=== PATIENT | male | born 1980 | race Caucasian/White ===

== ENCOUNTER 2018-02-12 14:48 | Emergency (ER) | payer MEDICAID ==
[~2018-02-12] VITALS: Ht 180.3 cm; Wt 65.8 kg
--- OUTSIDE RECORDS SUMMARY | ~2018-02-12 | XMS | Encounter Summary ---
Demographics + + + | Address | [address] | | | [place] [address] | + + + | Home Phone | | + + + | Preferred Language | Unknown | + + + | Marital Status | Single | + + + | Church Affiliation | Unknown | + + + | Race | Unknown | + + + | Ethnic Group | Unknown | + + + Author + + + | Author | [facility] | | | and [place] | + + + | Organization | [facility] | | | and [place] | + + + | Address | Unknown | + + + | Phone | Unavailable | + + + Support + + + + + | Name | Relationship | Address | Phone | + + + + + | Lidya Dodson | ECON | [address] | | | | | [place] [address] | | + + + + + Care Team Providers + +------+ + | Care Surfacing Technician Name | Role | Phone | + +------+ + | Mihaela Cordero | PCP | | + +------+ + Reason for Visit +---------+ + | Reason | Comments | +---------+ + | Results | | +---------+ + Encounter Details +--------+ + + + + | Date | Type | Department | Care Team | Description | +--------+ + + + + | 11/20/ | Telephone | [place] [facility] | Jerri Corderosay | Results | | 2018 | | [facility] | G, MUCK [address]ER BLASTING [address] | | | | | MEDICAL CLIN[facility] [address] | [place], [place] | | | | | [address] [place], | [address] | | | | | [place] [address] | [phone] | | | | | [phone] | | | +--------+ + + + + Social History + +-------+ +--------+ + | Tobacco Use | Types | Packs/Day | Years | Date | | | | | Used | | + +-------+ +--------+ + | Heavy Tobacco Smoker | | 0.5 | 20 | Started: 1993 | + +-------+ +--------+ + + +---+---+---+ | Smokeless Tobacco: | | | | | Former User | | | | + +---+---+---+ + + +---------+ + | Alcohol Use | Drinks/We | oz/Week | Comments | | | ek | | | + + +---------+ + | Yes | 2 Cans | 1.2 | | | | of beer | | | + + +---------+ + + + + | Sex Assigned at | Date Recorded | | | | + + + | Not on file | | + + + as of this encounter Plan of Treatment Not on fileas of this encounter Visit Diagnoses Not on filein this encounter"
--- OUTSIDE RECORDS SUMMARY | ~2018-02-12 | XMS | Encounter Summary ---
Demographics + + + | Address | [address] | | | [place] [address] | + + + | Home Phone | | + + + | Preferred Language | Unknown | + + + | Marital Status | Single | + + + | Sabianist Affiliation | Unknown | + + + | Race | Unknown | + + + | Ethnic Group | Unknown | + + + Author + + + | Author | [facility] | | | and [place] | + + + | Organization | [facility] | | | and [place] | + + + | Address | Unknown | + + + | Phone | Unavailable | + + + Support + + + + + | Name | Relationship | Address | Phone | + + + + + | Lidya Dodson | ECON | [address] | | | | | [place] [address] | | + + + + + Care Team Providers + +------+ + | Care Warp Tension Tester Name | Role | Phone | + +------+ + | Mihaela Cordero | PCP | | + +------+ + Reason for Referral Diagnostic/Screening (Routine) +--------+--------+ + + + + | Status | Reason | Specialty | Diagnoses / | Referred By | Referred To | | | | | Procedures | Contact | Contact | +--------+--------+ + + + + | Closed | | Radiology | Diagnoses | Anali Corderor | | | | | Thyroid | Mihaela G, | Nuclear | | | | | nodule | [address] | [address] | | | | | Procedures | [address] | [address] | | | | | NM THYROID | [place], [place] | [place] | | | | | [place] | [address] | [address] | | | | | SCAN | Phone: | Phone: | | | | | | [phone] | [phone] | | | | | | Fax: | Fax: | | | | | | [phone] | [phone] | +--------+--------+ + + + + Encounter Details +--------+ + + + + | Date | Type | Department | Care Team | Description | +--------+ + + + + | 11/17/ | Orders Only | [place] [facility] | Mihaela Cordero | Thyroid nodule | | 2018 | | [facility] | G, [address] | (Primary Dx) | | | | MEDICAL CLINIC [address] | [place], [place] | | | | | [address] [place], | [address] | | | | | [place] [address] | [phone] | | | | | [phone] | | | +--------+ + + + [...] + + + as of this encounter Progress Notes Mihaela Cordero ARNP - 11/17/2017 1651 PDTCalled patient and let him know that his thy roid ultrasound showed some solid lesion that appeared to be non-cancerous however there is another thyroid scan test that I would like to order for further evaluation. He was agreeabl e with this plan. in this encounter Plan of Treatment Not on fileas of this encounter Results NM THYROID UPTAKE AND SCAN (12/05/2017 0959) + + + | Impressions | Performed At | + + + | IMPRESSION: 1. The 24 hour uptake is mildly elevated. The | [facility] | | finding is nonspecific but can be associated with thyroiditis. 2. No | | | hot or cold nodules identified. The recent ultrasound study | | | demonstrated a hypoechoic less than 4 mm nodule at the lower right | | | thyroid. At the left thyroid lobe a hypoechoic 2 mm nodule | | | demonstrated. These findings would be too small to definitively | | | localize with nuclear medicine imaging. Dictated by: London Crowley | | | | | + + + + + + | Narrative | Performed At | + + + | EXAMINATION: NM THYROID UPTAKE AND SCAN HISTORY: solid thyroid | [facility] | | nodules further evaluation COMPARISON STUDY: Ultrasound thyroid | | | 11/17/2017 TECHNIQUE: 211 microcuries of I 123 sodium iodide was | | | administered orally to the patient. Routine for 24 hour uptake | | | images were then performed. FINDINGS: 4 hour uptake is calculated | | | at 14% 24 hour uptake is calculated at 30.5% Normal range for 4 | | | hour and 24 hour uptake is 5-15% and 10-25%. The thyroid gland | | | measures 6.1 cm on the right, and 5.3 cm on the left No hot or cold | | | nodule. | | + + + + + | Procedure Note | + + | Robin, Rad Results In - 12/05/2017 1326 PDT EXAMINATION:NM THYROID UPTAKE AND | | SCANHISTORY:solid thyroid nodules further evaluationCOMPARISON STUDY:Ultrasound thyroid | | 11/17/2017TECHNIQUE:211 microcuries of I 123 sodium iodide was administered orally to | | the patient. Routine for 24 hour uptake images were then performed.FINDINGS:4 hour | | uptake is calculated at 14%24 hour uptake is calculated at 30.5%Normal range for 4 hour | | and 24 hour uptake is 5-15% and 10-25%.The thyroid gland measures 6.1 cm on the right, | | and 5.3 cm on the leftNo hot or cold nodule.IMPRESSION: IMPRESSION:1. The 24 hour uptake | | is mildly elevated. The finding is nonspecific but can be associated with | | thyroiditis.2. No hot or cold nodules identified. The recent ultrasound study | | demonstrated a hypoechoic less than 4 mm nodule at the lower right thyroid. At the left | | thyroid lobe a hypoechoic 2 mm nodule demonstrated. These findings would be too small | | to definitively localize with nuclear medicine imaging.Dictated by: London | | Keo | |4 hour uptake is calculated at 14% | |24 hour uptake is calculated at 30.5% | |Normal range for 4 hour and 24 hour uptake is 5-15% and 10-25%. | |The thyroid gland measures 6.1 cm on the right, and 5.3 cm on the left | |No hot or cold nodule. | | | |IMPRESSION: | |IMPRESSION: | |1. The 24 hour uptake is mildly elevated. The finding is nonspecific but can be associated with thyroiditis. | |2. No hot or cold nodules identified. The recent ultrasound study demonstrated a hypoechoi c less than 4 mm nodule at the lower right thyroid. At the left thyroid lobe a hypoechoic 2 mm nodule demonstrated. These findings would be too small to | |definitively localize with nuclear medicine imaging. | | | |Dictated by: London Crowley | | | | | + + + +---------+ + + | Performing | Address | City/State/Zipcode | Phone Number | | Organization | | | | + +---------+ + + | [facility] | | | | + +---------+ + + in this encounter Visit Diagnoses + + | Diagnosis | + + | Thyroid nodule - Primary | + + | Nontoxic uninodular goiter | + +"
--- OUTSIDE RECORDS SUMMARY | ~2018-02-12 | XMS | Encounter Summary ---
Demographics + + + | Address | [address] | | | [place] [address] | + + + | Home Phone | | + + + | Preferred Language | Unknown | + + + | Marital Status | Single | + + + | Spiritism Affiliation | Unknown | + + + | Race | Unknown | + + + | Ethnic Group | Unknown | + + + Author + + + | Author | [facility] | | | and [place] | + + + | Organization | [facility] | | | and [place] | + + + | Address | Unknown | + + + | Phone | Unavailable | + + + Support + + + + + | Name | Relationship | Address | Phone | + + + + + | Lidya Dodson | ECON | [address] | | | | | [place] [address] | | + + + + + Care Team Providers + +------+ + | Care Environmental Conflict Manager Name | Role | Phone | + [...] | | | | | nodule | [address] | [address] | | | | | Procedures | [address] | [address] | | | | | NM THYROID | [place], [place] | [place] | | | | | [place] | [address] | [address] | | | | | SCAN | Phone: | Phone: | | | | | | [phone] | [phone] | | | | | | Fax: | Fax: | | | | | | [phone] | [phone] | +--------+--------+ + + + + Diagnostic/Screening (Routine) +--------+--------+ + + + + | Status | Reason | Specialty | Diagnoses / | Referred By | Referred To | | | | | Procedures | Contact | Contact | +--------+--------+ + + + + | Closed | | Radiology | Diagnoses | Cordero, | Cc Wgr | | | | | Thyroid | Mihaela Hill, | Nuclear | | | | | nodule | [address] | [address] | | | | | Procedures | [address] | [address] | | | | | NM THYROID | [place] | [place] | | | | | [place] | [address] | [address] | | | | | SCAN | Phone: | Phone: | | | | | | [phone] | [phone] | | | | | | Fax: | Fax: | | | | | | [phone] | [phone] | +--------+--------+ + + + + Reason for Visit Diagnostic/Screening (Routine) +--------+--------+ + + + + | Status | Reason | Specialty | Diagnoses / | Referred By | Referred To | | | | | Procedures | Contact | Contact | +--------+--------+ + + + + | Closed | | Radiology | Diagnoses | Gil | Nadia Wgr | | | | | Thyroid | Mihaela Hill, | Nuclear | | | | | nodule | [address] | [address] | | | | | Procedures | [address] | [address] | | | | | NM THYROID | [place] | [place] | | | | | [place] | [address] | [address] | | | | | SCAN | Phone: | Phone: | | | | | | [phone] | [phone] | | | | | | Fax: | Fax: | | | | | | [phone] | [phone] | +--------+--------+ + + + + Encounter Details +--------+ + + + + | Date | Type | Department | Care Team | Description | +--------+ + + + + | 12/04/ | [facility] | [place] [facility] | Mihaela Cordero | Thyroid nodule | | 2018 | Encounter | [facility] | G, RATE REVIEW[address] | | | | | MEDIC[address] | [place] | | | | | [place] | [address] | | | | | [address] | [phone] | | | | | [phone] | | | +--------+ + + + + Social History + +-------+ +--------+ + | Tobacco Use | Types | Packs/Day | Years | Date | | | | | Used | | + +-------+ +--------+ + | Heavy Tobacco Smoker | | 0.5 | 20 | Started: 1994 | + +-------+ +--------+ + + +---+---+---+ [...] + + + as of this encounter Medications at Time of Discharge + + +---------+---------+ + + | Medication | Sig. | Disp. | Refills | Start | End Date | | | | | | Date | | + + +---------+---------+ + + | triamcinolone | Apply small amount | 60 mL | 0 | // | | | (KENALOG) 0.1% | to affected area(s) | | | 18 | | | lotionIndications: | two to four times | | | | | | Tinea pedis of both | daily as needed: | | | | | | feet | avoid face and groin | | | | | | | areas | | | | | + + +---------+---------+ + + as of this encounter Plan of Treatment Not on fileas of this encounter Procedures + +--------+ + + + | Procedure Name | Priori | Date/Time | Associated Diagnosis | Comments | | | ty | | | | + +--------+ + + + | NM THYROID UPTAKE | Routin | 12/05/2017 | Thyroid nodule | Results for this | | AND SCAN | e | 0959 PDT | | procedure are in the | | | | | | results section. | + +--------+ + + + in this encounter Results NM THYROID UPTAKE AND [...] Diagnosis | + + | Thyroid nodule | + + | Nontoxic uninodular goiter | + +"
--- OUTSIDE RECORDS SUMMARY | ~2018-02-12 | XMS | Encounter Summary ---
Demographics + + + | Address | [address] | | | [place] [address] | + + + | Home Phone | | + + + | Preferred Language | Unknown | + + + | Marital Status | Single | + + + | Roman Catholic Affiliation | Unknown | + + + | Race | Unknown | + + + | Ethnic Group | Unknown | + + + Author + + + | Author | [facility] | | | and [place] | + + + | Organization | [facility] | | | and [place] | + + + | Address | Unknown | + + + | Phone | Unavailable | + + + Support + + + + + | Name | Relationship | Address | Phone | + + + + + | Lidya Dodson | ECON | [address] | | | | | [place] [address] | | + + + + + Care Team Providers + +------+ + | Care Cane Weigher Helper Name | Role | Phone | + +------+ + | Mihaela Cordero PCP | | + +------+ + Encounter Details +--------+ + + + + | Date | Type | Department | Care Team | Description | +--------+ + + + + | 12/04/ | [facility] | Mihaela Cordero | | | 2018 | Encounter | [facility] | [place] [address] | | | | | MEDICINE [address] | [place] | | | | | [address] [place], [place] | [address] | | | | | [address] | [phone] | | | | | [phone] | | | +--------+ + + + [...] amount | 60 mL | 0 | 11/15/19 | | | (KENALOG) 0.1% | to [...] +--------+ + + + in this encounter Visit Diagnoses Not on filein this encounter Administered Medications + +--------+ + +------+------+ | Medication Order | MAR | Action | Dose | Rate | Site | | | Action | Date | | | | + +--------+ + +------+------+ | iodine I-123 (thyroid scan) | Given | | 211 | | | | capsule 211 microcurie 211 | | 8 9:36 | microcur | | | | microcurie, Oral, ONCE PRN, | | PDT | ie | | | | Other, Starting 12/04/17 at | | | | | | | 0936, For 1 dose, Nuclear | | | | | | | Medicine | | | | | | + +--------+ + +------+------+ +---+---+ | | | +---+---+ in this encounter"
--- OUTSIDE RECORDS SUMMARY | ~2018-02-12 | XMS | Encounter Summary ---
Demographics + + + | Address | [address] | | | [place] [address] | + + + | Home Phone | | + + + | Preferred Language | Unknown | + + + | Marital Status | Single | + + + | Mormon Affiliation | Unknown | + + + | Race | Unknown | + + + | Ethnic Group | Unknown | + + + Author + + + | Author | [facility] | | | and [place] | + + + | Organization | [facility] | | | and [place] | + + + | Address | Unknown | + + + | Phone | Unavailable | + + + Support + + + + + | Name | Relationship | Address | Phone | + + + + + | Lidya Dodson | ECON | [address] | | | | | [place] [address] | | + + + + + Care Team Providers + +------+ + | Care Search Specialist Name | Role | Phone | + +------+ + | Mihaela Cordero | PCP | | + +------+ + Reason for Visit +---------+ + | Reason | Comments | +---------+ + | Results | | +---------+ + Encounter Details +--------+ + + + + | Date | Type | Department | Care Team | Description | +--------+ + + + + | 12/06/ | Telephone | [place] [facility] | Carrington Corderoy | Results | | 2018 | | [facility] | G, UNION CONTRACT REPRESENTATIVE [address] | | | | | MEDICAL CLINIC [address] | [place], [place] | | | | | [address] [place], | [address] | | | | | [place] [address] | [phone] | | | | | [phone] | | | +--------+ + + + [...]
--- OUTSIDE RECORDS SUMMARY | ~2018-02-12 | XMS | Clinical Summary ---
Demographics + + + | Address | [address] | | | [place] [address] | + + + | Home Phone | | + + + | Preferred Language | Unknown | + + + | Marital Status | Single | + + + | Baptism Affiliation | Unknown | + + + | Race | Unknown | + + + | Ethnic Group | Unknown | + + + Author + + + | Author | [facility] | | | and [place] | + + + | Organization | [facility] | | | and [place] | + + + | Address | Unknown | + + + | Phone | Unavailable | + + + Support + + + + + | Name | Relationship | Address | Phone | + + + + + | Lidya Dodson | ECON | [address] | | | | | [place] [address] | | + + + + + Care Team Providers + +------+ + | Care Type Caster Name | Role | Phone | + +------+ + | Mihaela Cordero | PP | | + +------+ + Allergies No Known Allergies Current Medications + + +---------+---------+------+------+-------+ | Prescription | Sig. | Disp. | Refills | Star | End | Statu | | | | | | t | Date | s | | | | | | Date | | | + + +---------+---------+------+------+-------+ | triamcinolone | Apply small amount | 60 mL | 0 | 05/2 | | Activ | | (KENALOG) 0.1% | to affected area(s) | | | 9/20 | | e | | lotionIndications: | two to four times | | | 18 | | | | Tinea pedis of both | daily as needed: | | | | | | | feet | avoid face and groin | | | | | | | | areas | | | | | | + + +---------+---------+------+------+-------+ Active Problems + + + | Problem | Noted Date | + + + | Gastroesophageal reflux disease | 01/05/2016 | + + + Encounters +--------+ + + + + | Date | Type | Specialty | Care Team | Description | +--------+ + + + + | 12/06/ | Telephone | | Mihaela Cordero | Results | | 2017 | | | [facility] | | +--------+ + + + + | 12/05/ | Hospital | | Mihaela Cordero | | | 2017 | Encounter | | [facility] | | +--------+ + + + + | 12/05/ | Orders Only | | Mihaela Cordero | Multiple thyroid | | 2017 | | | [facility] | nodules (Primary Dx) | +--------+ + + + + | 12/04/ | Hospital | | Mihaela Cordero | | | 2018 | Encounter | | [facility] | | +--------+ + + + + | 12/04/ | Hospital | | Mihaela Cordero | Thyroid nodule | | 2018 | Encounter | | [facility] | | +--------+ + + + + | 11/20/ | Telephone | | Mihaela Cordero | Results | | 2017 | | | [facility] | | +--------+ + + + + | 11/20/ | Telephone | | Mihaela Cordero | Results | | 2018 | | | [facility] | | +--------+ + + + + | 11/17/ | Hospital | | Mihaela Cordero | Dysphagia, | | 2017 | Encounter | | [facility] | unspecified type | +--------+ + + + + | 11/17/ | Orders Only | | Mihaela Cordero | Thyroid nodule | | 2018 | | | [facility] | (Primary Dx) | +--------+ + + + + | 11/17/ | Telephone | | Mihaela Cordero | 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, 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 | | +--------+ + + + + | 11/14/ | Office | | Mihaela Cordero | Fatigue, unspecified | | 2017 | Visit | | [facility] | type (Primary Dx); | | | | | | 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; | | | | | | Onychomycosis; | | | | | | Dysphagia, | | | | | | unspecified type; | | | | | | Tinea pedis of both | | | | | | feet; At risk for | | | | | | sexually transmitted | | | | | | disease due to | | | | | | unprotected sex | +--------+ + + + + from Last 3 Months Family History + + +------+ + | Medical History | Relation | Name | Comments | + + +------+ + | Breast cancer | Maternal | | | | | Grandmoth | | | | | er | | | + + +------+ + | Thyroid disease | Mother | | | + + +------+ + | Prostate cancer | Paternal | | | | | Grandfath | | | | | er | | | + + +------+ + | Thyroid disease | Sister | | | + + +------+ + + +------+--------+ + | Relation | Name | Status | Comments | + +------+--------+ + | Maternal Grandmother | | | | + +------+--------+ + | Mother | | | | + +------+--------+ + | Paternal Grandfather | | | | + +------+--------+ + | Sister | | | | + +------+--------+ + Social History + +-------+ +--------+ + [...] on file | | + + + Last Filed Vital Signs + + + + | Vital Sign | Reading | Time Taken | + + + + | Blood Pressure | 104/76 | 11/14/2017923 PDT | + + + + | Pulse | 86 | 11/14/2017923 PDT | + + + + | Temperature | 36.7 C (98.1 F) | 10/30/2017 1623 PDT | + + + + | Respiratory Rate | 16 | 11/14/2017923 PDT | + + + + | Oxygen Saturation | 98% | 11/14/2017923 PDT | + + + + | Inhaled Oxygen | - | - | | Concentration | | | + + + + | Weight | 66.2 kg (146 lb) | 11/14/2017923 PDT | + + + + | Height | 175.3 cm (5' 9") | 11/14/2017923 PDT | + + + + | Body Mass Index | 21.56 | 11/14/2017 0924 PDT | + + + + Plan of Treatment + + + + + | Health Maintenance | Due Date | Last Done | Comments | + + + + + | PRIMARY CARE | | | | | OUTREACH-MODERATE | 1 | | | | RISK EVERY 1 YEAR | | | | + + + + + | Vaccine: | | | | | Dtap/Tdap/Td (1 - | 0 | | | | Tdap) | | | | + + + + + | Vaccine: | | | | | Pneumococcal 19-64 | 0 | | | | (PPSV23 only) Medium | | | | | Risk (1 of 1 - | | | | | PPSV23) | | | | + + + + + | Vaccine: Influenza | | | | | (#1) | 8 | | | + + + + + Procedures + +--------+ + + + | [...] section. | + +--------+ + + + | US THYROID | Routin | 11/17/2017 | Dysphagia, | Results for this | | | e | 1605 PDT | unspecified type | procedure are in the | | | | | | results section. | + +--------+ + + + | COMPREHENSIVE | Routin | 11/15/2017 | Fatigue, | Results for this | | METABOLIC PANEL | e | 0705 PDT | unspecified type | procedure are in the | | | | | | results section. | + +--------+ + + + | CBC NO DIFFERENTIAL | Routin | 11/15/2017 | Fatigue, | Results for this | | | e | 0705 PDT | unspecified type | procedure are in the | | | | | | results section. | + +--------+ + + + | HEPATITIS C, NAAT, | Routin | 11/15/2017 | History of | Results for this | | QUANT, REFLEX | e | 0705 PDT | methamphetamine use | procedure are in the | | | | | At risk for | results section. | | | | | sexually transmitted | | | | | | disease due to | | | | | | unprotected sex | | + +--------+ + + + | HIV 1, RNA, NAAT, | Routin | 11/15/2017 | History of | Results for this | | QUANT | e | 0705 PDT | methamphetamine use | procedure are in the | | | | | At risk for | results section. | | | | | sexually transmitted | | | | | | disease due to | | | | | | unprotected sex | | + +--------+ + + + | TSH, REFLEX FREE T4 | Routin | 11/15/2017 | Fatigue, | Results for this | | | e | 0705 PDT | unspecified type | procedure are in the | | | | | | results section. | + +--------+ + + + from Last 3 Months Results NM THYROID UPTAKE AND SCAN (12/05/2017 [...] with nuclear medicine imaging.Dictated by: [place] | Anali Crowley | |4 hour uptake is calculated at [...] | | | + +---------+ + + US Thyroid (11/17/2017 1605) + + + | Impressions | Performed At | + + + | IMPRESSION: No suspicious thyroid nodule or neck lymph node is | [facility] | | identified. Benign-appearing bilateral small thyroid nodules. | | | Dictated by: Flako De Dios | | + + + + + + | Narrative | Performed At | + + + | EXAMINATION: US THYROID HISTORY: family history of thyroid | [facility] | | disease and dysphagia COMPARISON STUDY: None FINDINGS: Right | | | thyroid lobe: Measures 5.6 x 1.5 x 1.6 cm. Normal vascularity. | | | Normal echotexture. Upper:No nodule Mid:Medially near the isthmus | | | there is a hypoechoic 4 x 3 x 4 mm solid nodule. Lower:No nodule | | | Isthmus:Normal size. No nodule. Abutting the isthmus is a | | | hypoechoic wider than deep 2 x 5 x 4 mm focus. There is suggestion | | | of a central vascular hilum. Query small lymph node. Left | | | thyroid lobe: Measures 5.4 x 1.4 x 1.6 cm. Normal vascularity. | | | Normal echotexture. Upper:No nodule Mid:Solid 3 x 2 x 3 mm nodule. | | | Lower:No nodule Neck evaluation demonstrates benign-appearing | | | right level 3 node measuring 2 x 6 x 18 mm. Benign-appearing left | | | level 3 lymph node measures 2 x 4 x 8 mm. | | + + + + + | Procedure Note | + + | Raad Kelly Results In - 11/17/2017 1626 PDT EXAMINATION:US THYROIDHISTORY:family | | history of thyroid disease and dysphagiaCOMPARISON STUDY:NoneFINDINGS:Right thyroid | | lobe:Measures 5.6 x 1.5 x 1.6 cm.Normal vascularity.Normal echotexture.Upper:No | | noduleMid:Medially near the isthmus there is a hypoechoic 4 x 3 x 4 mm solid | | nodule.Lower:No noduleIsthmus:Normal size. No nodule. Abutting the isthmus is a | | hypoechoic wider than deep 2 x 5 x 4 mm focus. There is suggestion of a central | | vascular hilum. Query small lymph node.Left thyroid lobe:Measures 5.4 x 1.4 x 1.6 | | cm.Normal vascularity.Normal echotexture.Upper:No noduleMid:Solid 3 x 2 x 3 mm | | nodule.Lower:No noduleNeck evaluation demonstrates benign-appearing right level 3 node | | measuring 2 x 6 x 18 mm. Benign-appearing left level 3 lymph node measures 2 x 4 x 8 | | mm.IMPRESSION: IMPRESSION:No suspicious thyroid nodule or neck lymph node is identified. | | Benign-appearing bilateral small thyroid nodules.Dictated by: Flako | | D[place] | |Normal echotexture. | |Upper:No nodule | |Mid:Medially near the isthmus there is a hypoechoic 4 x 3 x 4 mm solid nodule. | |Lower:No nodule | | | |Isthmus:Normal size. No nodule. Abutting the isthmus is a hypoechoic wider than deep 2 x 5 x 4 mm focus. There is suggestion of a central vascular hilum. Query small lymph node. | | | |Left thyroid lobe: | |Measures 5.4 x 1.4 x 1.6 cm. | |Normal vascularity. | |Normal echotexture. | |Upper:No nodule | |Mid:Solid 3 x 2 x 3 mm nodule. | |Lower:No nodule | | | |Neck evaluation demonstrates benign-appearing right level 3 node measuring 2 x 6 x 18 mm. Benign-appearing left level 3 lymph node measures 2 x 4 x 8 mm. | | | |IMPRESSION: | |IMPRESSION: | |No suspicious thyroid nodule or neck lymph node is identified. Benign-appearing bilateral small thyroid nodules. | | | |Dictated by: Flako De Dios | | | | | + + + +---------+ + + | Performing | Address | City/State/Zipcode | Phone Number | | Organization | | | | + +---------+ + + | [facility] | | | | + +---------+ + + Hepatitis C, NAAT, Quant, Reflex (11/15/2017704) + + + + + | Component | Value | Ref Range | Performed At | + + + + + | Hepatitis C Ab | NONREACTIVE | | REFERENCE LAB | | | | | [facility] | | | | | [facility] - | | | | | [place] | | | | | [place] | + + + + + | Signal/Cutoff | 0.02Comment: REFERENCE | | REFERENCE LAB | | | RANGE: | | [facility] | | | NONREACTIVE | | DI[facility] - | | | | | [place] | | | (SIGNAL TO CUTOFF <1.00) | | [place] | | | Test(s) performed | | | | | at: [facility] | | | | | INFECTIOUS | | | | | DISE[facility] Phil Banda | | | | | Matthew Anne, | | | | | Medical | | | | | Director [id number] | | | | | [place] | | | | | [facility] | | | | | [place] | | | | | [address] [place] | | | | | #[id number] | | | + + + + + + + | Specimen | + + | Blood | + + + + + | Narrative | Performed At | + + + | Performing Organization Information: Site ID: HEPATITIS C | REFERENCE LAB | | ANTIBODY W/RFX TO HCV RNA,QUANT REAL-TIME PCR Name: | [facility] | | Address: , Director: | DIAGNOSTICS - | | | [place] | | | [place] | + + + + + + + + | Performing | Address | City/State/Zipcode | Phone Number | | Organization | | | | + + + + + | REFERENCE LAB | [address] [facility] | [place], [place] | | | [facility] - | | [address] | | | [place] | | | | + + + + + TSH, Reflex Free T4 (11/15/2017704) + +-------+ + + | Component | Value | Ref Range | Performed At | + +-------+ + + | TSH | 0.92 | 0.36 - 3.74 uIU/mL | [facility] | | | | [facility] | | | | | [facility] | | | | | [facility] | | | | | LAB | + +-------+ + + + + | Specimen | + + | Blood | + + + + + + + | Performing | Address | City/State/Zipcode | Phone Number | | Organization | | | | + + + + + | [facility] | [address] | [place] [address] | [phone] | | [facility] | | | | | [facility] | | | | + + + + + HIV 1, RNA, NAAT, Quant (11/15/2017704) + + + + + | Component | Value | Ref Range | Performed At | + + + + + | HIV-1 RNA by PCR, Qn | <20 NOT DETECTED | copies/mL | REFERENCE LAB | | | | | [facility] | | | | | [facility]NOST[facility] - | | | | | [place] | | | | | [place] | + + + + + | HIV-1 RNA Viral Load | <1.30 NOT | Log copies/mL | REFERENCE LAB | | Log | DETECTEDComment: | | [facility] | | | REFERENCE | | DIAGNOSTICS - | | | RANGE: | | [place] | | | NOT | | [place] | | | DETECTED copies/mL | | | | | NOT | | | | | DETECTED Log | | | | | copies/mL This test was | | | | | performed using | | | | | Real-Time Polymerase | | | | | Chain Reaction. | | | | | Reportable range is 20 | | | | | to 10,000,000 copies/mL | | | | | (1.30-7.00 Log | | | | | copies/mL) Test(s) | | | | | performed | | | | | at: [facility] | | | | | INFECTIOUS | | | | | DISE[facility] Phil Banda | | | | | Matthew Anne, | | | | | Medical | | | | | Director [id number] | | | | | [place] | | | | | [facility] | | | | | [place] | | | | | [address] [place] | | | | | #[id number] | | | + + + + + + + | Specimen | + + | Blood | + + + + + | Narrative | Performed At | + + + | Performing Organization Information: Site ID: HIV-1 RNA, | REFERENCE LAB | | QUANTITATIVE REAL-TIME PCR Name: Address: , | [facility] | | Director: | MEE[place] - | | | [place] | | | [place] | + + + + + + + + | Performing | Address | City/State/Zipcode | Phone Number | | Organization | | | | + + + + + | REFERENCE LAB | [address] [facility] | [place], [place] | | | [facility] - | | [phone] | | | [place] | | | | + + + + + CBC no Differential (11/15/2017704) + + + + + | Component | Value | Ref Range | Performed At | + + + + + | WBC | 6.5 | 4.6 - 10.5 K/uL | [facility] | | | | | [facility] | | | | | [facility] | | | | | [facility] | | | | | LAB | + + + + + | RBC | 5.03 | 4.36 - 5.83 M/uL | [facility] | | | | | [facility] | | | | | [facility] | | | | | [facility] | | | | | LAB | + + + + + | Hgb | 16.7 | 13.1 - 17.4 g/dL | [facility] | | | | | [facility] | | | | | [facility] | | | | | [facility] | | | | | LAB | + + + + + | Hct | 48.5 | 39.0 - 51.9 % | [facility] | [facility] | | | | | [facility] | | | | | [facility] | | | | | LAB | + + + + + | MCV | 96.5 (H) | 82.0 - 96.0 fL | [facility] | | | | | [facility] | | | | | [facility] | | | | | [facility] | | | | | LAB | + + + + + | MCH | 33.2 (H) | 27.7 - 32.3 pg | [facility] | | | | [facility] | | [facility] | | [facility] | | | | | [facility] | | | | | LAB | + + + + + | MCHC | 34.4 | 32.0 - 36.9 g/dL | [facility] | | | | [facility] | | | | | [facility] | | | | | [facility] | | | | | LAB | + + + + + | RDW-CV | 13.4 | 0.0 - 17.0 % | [facility] | [facility] | [facility] | | | | | [facility] | | | | | [facility] | | | | | LAB | + + + + + | Platelet Count | 205 | 150 - 450 K/uL | [facility] | | | | | [facility] | | | | | [facility] | | | | | [facility] | | | | | LAB | + + + + + | MPV | 7.0 (L) | 9.4 - 12.4 fL | [facility] | | | | | [facility] | | | | | [facility] | | | | | [facility] | | | | | LAB | + + + + + + + | Specimen | + + | Blood | + + + + + + + | Performing | Address | City/State/Zipcode | Phone Number | | Organization | | | | + + + + + | [facility] | [address] | [place] [address] | [phone] | | [facility] | | | | | [facility] | | | | + + + + + Comprehensive Metabolic Panel (11/15/2017704) + + + + + | Component | Value | Ref Range | Performed At | + + + + + | NA | 143 | 132 - 143 mmol/L | [facility] | | | [facility] | | | | | [facility] | | | | | [facility] | | | | | LAB | + + + + + | K | 4.2 | 3.3 - 4.9 mmol/L | [facility] | | | | | [facility] | | | | | [facility] | | | | | [facility] | | | | | LAB | + + + + + | CL | 106 | 95 - 108 mmol/L | [facility] | | | | [facility] | | | | | [facility] | | | | | [facility] | | | | | LAB | + + + + + | CO2 | 33 | 23 - 34 mmol/L | [facility] | | | [facility] | | | | | [facility] | | | | | [facility] | | | | | LAB | + + + + + | ANION GAP | 4 (L) | 7 - 16 mmol/L | [facility] | [facility] | | | | | [facility] | | | | | [facility] | | | | | LAB | + + + + + | GLUCOSE | 80 | 70 - 110 mg/dL | [facility] | | | | | [facility] | | | | | [facility] | | | | | [facility] | | | | | LAB | + + + + + | BUN | 14 | 5 - 26 mg/dL | [facility] | | | | | [facility] | | | | | [facility] | | | | | [facility] | | | | | LAB | + + + + + | Creatinine, | 0.90 | 0.60 - 1.30 mg/dL | [facility] | | Serum/Plasma | | | [facility]OSPITAL | | | | | [facility] | | | | | [facility] | | | | | LAB | + + + + + | eGFR if not | >60Comment: GLOMERULAR | >=60 mL/min/1.73m2 | [facility] | | [facility] | FILTRATION | | HOSPITAL | | | RATE,ESTIMATED mL/min | | REGIONAL | | | /1.30s4Mbwq than 60 | | MEDICAL CENTER | | | Chronic kidney | | LAB | | | disease,if found over a | | | | | 3-month period.Less than | | | | | 15 Kidney | | | | | failureFor | | | | | Americans,multiply the | | | | | calculated GFR by 1.21. | | | | | | | | + + + + + | CALCIUM | 8.5 | 8.3 - 10.0 mg/dL | [facility] | | | | | [facility] | | | | | [facility] | | | | | [facility] | | | | | LAB | + + + + + | ALBUMIN | 3.7 | 3.0 - 4.5 g/dL | [facility] | | | | | [facility] | | | | | [facility] | | | | | [facility] | | | | | LAB | + + + + + | Bilirubin Total | 0.3 | 0.0 - 1.2 mg/dL | [facility] | | | | | [facility] | | | | | [facility] | | | | | [facility] | | | | | LAB | + + + + + | Total protein | 6.9 | 6.6 - 8.5 g/dL | [facility] | | | | | [facility] | | | | | [facility] | | | | | [facility] | | | | | LAB | + + + + + | AST | 19 | 0 - 38 U/L | [facility] | | | | [facility] | | | | | [facility] | | | | | [facility] | | | | | LAB | + + + + + | ALT | 36 | 16 - 63 U/L | [facility] | | | [facility] | | | | | [facility] | | | | | [facility] | | | | | LAB | + + + + + | ALK PHOS | 70 | 46 - 116 U/L | [facility] | | [facility] | | | | | [facility] | | | | | [facility] | | | | | LAB | + + + + + | GLOBULIN | 3.2 | g/dL | [facility] | | [facility] | | | | | [facility] | | | | | [facility] | | | | | LAB | + + + + + | Albumin/Globulin | 1.2 | | [facility] | | ratio | | | [facility]ITAL | | | | | [facility] | | | | | [facility] | | | | | LAB | + + + + + | BUN/CREA | 15.6 | 7.0 - 24.0 | [facility] | | | [facility] | | | | | [facility] | | | | | [facility] | | | | | LAB | + + + + + + + | Specimen | + + | Blood | + + + + + + + | Performing | Address | City/State/Zipcode | Phone Number | | Organization | | | | + + + + + | [facility] | [address] [facility] | [place] [address] | [phone] | | [facility] | | | | | [facility] LAB | | | | + + + + + from Last 3 Months
--- OUTSIDE RECORDS SUMMARY | ~2018-02-12 | XMS | Clinical Summary ---
Demographics + + + | Address | [address] | | | [place] [address] | + + + | Home Phone | | + + + | Preferred Language | Unknown | + + + | Marital Status | Single | + + + | Oriental Orthodox Affiliation | Unknown | + + + | Race | Unknown | + + + | Ethnic Group | Unknown | + + + Author + + + | Author | [facility] | | | and [place] | + + + | Organization | [facility] | | | and [place] | + + + | Address | Unknown | + + + | Phone | Unavailable | + + + Support + + + + + | Name | Relationship | Address | Phone | + + + + + | Lidya Dodson | ECON | [address] | | | | | [place] [address] | | + + + + + Care Team Providers + +------+ + | Care Ring Facer Name | Role | Phone | + [...] | | 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, 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 | | +--------+ + + + + [...] Medical | | | | | Director [id number] | | | | | [place] | | | | | [facility] | | | | | [place] | | | | | [address] [place] | | | | | #[id number] | | | + + + + [...] + + + | REFERENCE LAB | [address] [facility] | [place], [place] | | | [facility] - | | [address] | | | [facility] | | [...] | [address] | [place] [address] | [phone] | | [facility] | | | | | [facility] | | | | [...] Medical | | | | | Director [id number] | | | | | [place] | | | | | [facility] | | | | | [place] | | | | | [address] [place] | | | | | #[id number] | | | + + + + [...] + + + | REFERENCE LAB | [address] [facility] | [place], [place] | | | [facility] - | | [address] | | | [facility] | | [...] (L) | 9.4 - 12.4 fL | [facility] | | | [...] | [address] | [place] [address] | [phone] | | [facility] | | | | | [facility] | | | | [...] >=60 mL/min/1.73m2 | [facility] | | GREEK | FILTRATION | | HOSPITAL | | | RATE,ESTIMATED mL/min | | REGIONAL | | | /1.36g1Busi than 60 | | MEDICAL CENTER | [...] + + | [facility] | [address] [facility] | [place] [address] | [phone] | | [facility] | | | | | [facility] LAB | | | | + + + + + from Last 3 Months
--- OUTSIDE RECORDS SUMMARY | ~2018-02-12 | XMS | Encounter Summary ---
Demographics + + + | Address | [address] | | | [place] [address] | + + + | Home Phone | | + + + | Preferred Language | Unknown | + + + | Marital Status | Single | + + + | Denominational Affiliation | Unknown | + + + | Race | Unknown | + + + | Ethnic Group | Unknown | + + + Author + + + | Author | [facility] | | | and [place] | + + + | Organization | [facility] | | | and [place] | + + + | Address | Unknown | + + + | Phone | Unavailable | + + + Support + + + + + | Name | Relationship | Address | Phone | + + + + + | Lidya Dodson | ECON | [address] | | | | | [place] [address] | | + + + + + Care Team Providers + +------+ + | Care Heat Treat Worker Name | Role | Phone | + [...] | | | | | nodule | MEDICAL REGISTRAR [address] | Medicine [address] | | | | | Procedures | [address] | [address] | | | | | NM THYROID | [place] | | | | | [place] | [address] | [address] | | | | | SCAN | Phone: | Phone: | | | | | | [phone] | [phone] | | | | | | Fax: | Fax: | | | | | | [phone] | [phone] | +--------+--------+ + + + + Encounter Details +--------+ + + + + | Date | Type | Department | Care Team | Description | +--------+ + + + + | 11/17/ | Orders Only | [facility] | [facility] | Thyroid nodule | | 2018 | | [facility] | G, MEDICAL REGISTRAR [address] | (Primary Dx) | | | | [facility] | [place], [place] | | | | [address] [place], | [address] | | | | | [place] [address] | [phone] | | | | | [phone] | | | +--------+ + + + [...]
--- OUTSIDE RECORDS SUMMARY | ~2018-02-12 | XMS | Encounter Summary ---
Demographics + + + | Address | [address] | | | [place] [address] | + + + | Home Phone | | + + + | Preferred Language | Unknown | + + + | Marital Status | Single | + + + | Pentecostal Affiliation | Unknown | + + + | Race | Unknown | + + + | Ethnic Group | Unknown | + + + Author + + + | Author | [facility] | | | and [place] | + + + | Organization | [facility] | [...] [address] | | | | | [place] [address] | | + + + + + Care Team Providers + +------+ + | Care Chicken Tender Name | Role | Phone | + +------+ + | Mihaela Cordero | PCP | | + +------+ + Encounter Details +--------+ + + + + | Date | Type | Department | Care Team | Description | +--------+ + + + + | 11/17/ | [facility] | Mihaela Cordero | Dysphagia, | | 2018 | Encounter | [facility] | G, [employer] T[employer] HELPER [address] | unspecified type | | | | [address] [place] | [place], [place] | | | | | [place], [place] | [address] | | | | | [address] | [phone] | | | | | [phone] | | | +--------+ + + + [...] + + + in this encounter Results US Thyroid (11/17/2017 1605) + + + [...] + | Robin, Rad Results In - 11/17/2017 1626 PDT EXAMINATION:US [...] small thyroid nodules.Dictated by: Flako | | Joseectronically Signed by: Flako De Dios on 11/17/2017 4:22 PM | |Normal echotexture. | |Upper:No nodule | [...] + | Diagnosis | + + | Dysphagia, unspecified type | + +"
--- OUTSIDE RECORDS SUMMARY | ~2018-02-12 | XMS | Encounter Summary ---
Demographics + + + | Address | [address] | | | [place] [address] | + + + | Home Phone | | + + + | Preferred Language | Unknown | + + + | Marital Status | Single | + + + | Yarsani Affiliation | Unknown | + + + | Race | Unknown | + + + | Ethnic Group | Unknown | + + + Author + + + | Author | [facility] | | | and [place]ana | + + + | Organization | [facility] | | | and [place]ana | + + + | Address | Unknown | + + + | Phone | Unavailable | + + + Support + + + + + | Name | Relationship | Address | Phone | + + + + + | Lidya Dodson | ECON | [address] | | | | | [place] [address] | | + + + + + Care Team Providers + +------+ + | Care Check Cashier Name | Role | Phone | + [...] | | | [place], [place] | [address] | | | | | [address] | [phone] | | | | | [phone] | | | +--------+ + + + [...]
--- OUTSIDE RECORDS SUMMARY | ~2018-02-12 | XMS | Encounter Summary ---
Demographics + + + | Address | [address] | | | [place] [address] | + + + | Home Phone | | + + + | Preferred Language | Unknown | + + + | Marital Status | Single | + + + | Faith Affiliation | Unknown | + + + | Race | Unknown | + + + | Ethnic Group | Unknown | + + + Author + + + | Author | [facility] | | | and Mattana | + + + | Organization | [facility] | | | and [place]ana | + + + | Address | Unknown | + + + | Phone | Unavailable | + + + Support + + + + + | Name | Relationship | Address | Phone | + + + + + | Lidya Dodson | ECON | [address] | | | | | [place] [address] | | + + + + + Care Team Providers + +------+ + | Care Dry Finisher Name | Role | Phone | + +------+ + | Mihaela Cordero | PCP | | + +------+ + Reason for Referral Evaluate & Treat (Routine) + + + + + + + | Status | Reason | Specialty | Diagnoses / | Referred By | Referred To | | | | | Procedures | Contact | Contact | + + + + + + + | Authorized | Specialty | Podiatry | Diagnoses | Cordero, | Gonzalez, | | | Services | | | Mihaela G, | Brendan | | | Required | | Onychomycosi | [address] | [place] | | | | | s | [address] | [address] | | | | | | [place], [place] | [place] | | | | | | [address] | [place], [place] | | | | | | Phone: | [address] Phone: | | | | | | [phone] | [phone] | | | | | | Fax: | Fax: | | | | | | [phone] | [phone] | + + + + + + + Reason for Visit + + + | Reason | Comments | + + + | Establish Care | | + + + Encounter Details +--------+---------+ + + + | Date | Type | Department | Care Team | Description | +--------+---------+ + + + | 11/14/ | Office | [place] [facility] | Jerri Corderosay | Fatigue, unspecified | | 2018 | Visit | [facility] | G, JUNK DEALER [address] | type (Primary Dx); | | | | MEDICAL CLINIC [address] | [place], [place] | History of | | | | [address] [place], | [address] | methamphetamine use; | | | | [place] [address] | [phone] | Onychomycosis; | | | | [phone] | | Dysphagia, | | | | | | unspecified type; | | | | | | Tinea pedis of both | | | | | | feet; At risk for | | | | | | sexually transmitted | | | | | | disease due to | | | | | | unprotected sex | +--------+---------+ + + + Social History + +-------+ [...] + + + as of this encounter Last Filed Vital Signs + + + + | Vital Sign | Reading | Time Taken | + + + + | Blood Pressure | 104/76 | 11/14/2017923 PDT | + + + + | Pulse | 86 | 11/14/2017923 PDT | + + + + | Temperature | - | - | + + + + | Respiratory [...] | Body Mass Index | 21.56 | 11/14/2017923 PDT | + + + + in this encounter Progress Notes Mihaela Cordero ARNP - 11/14/2017 0930 PDTFormatting of this note may be different fro m the original. Patient ID: Edin Brothers is a 37 y.o. year old male Chief Complaint: Chief Complaint Patient presents with Establish Care Assessment and Plan: 1. Fatigue, unspecified type TSH, Reflex Free T4 CBC no Differential Comprehensive Metabolic Panel CANCELED: Basic Metabolic Panel 2. History of methamphetamine use HIV 1, RNA, NAAT, Quant Hepatitis C, NAAT, Quant, Reflex 3. Onychomycosis Podiatry, External - AMB Referral 4. Dysphagia, unspecified type US Thyroid 5. Tinea pedis of both feet triamcinolone (KENALOG) 0.1% lotion 6. At risk for sexually transmitted disease due to unprotected sex HIV 1, RNA, NAAT, Quant Hepatitis C, NAAT, Quant, Reflex Will make plans based on results. RTC prn for any concerns. Subjective: Patient presents to establish care. Was seen in the [facility] for a tick bite 10/23/17 and given an rx for doxycycline. Has not had a PCP in this clinic and we have no past medical records. S tates that he has not had a PCP for over 20 years. His main concern today is yellow thickened nails on the great toe and second toenails which he first noticed about one month ago. He has also noticed a rash on the medial side of both great toes that he first noticed today. States he started putting coconut oil on the rash y . Reports that his mother has Laura's and has had thyroid removed and his sister has Grav es disease and had a goiter removed. Denies family history of thyroid cancer. States he is o ften fatigued, get cold easily, dry skin and constipation. Reports that 2 weeks ago he began having fullness in his throat and difficulty swallowing. Reports cervical adenopathy for th e past 10 years. Has history of methamphetamine use. States he last used about one month ago. States he goes to and is currently clean. Reports he has intermittent depression and then starts using methamphetamine. States he is not currently depressed and not interested in medication for d epression or counseling. Other than NA he does not want to do anything else today about meth use today. States he has never used needles but has slept with people who have and is reque sting an HIV test. Smokes 1/2 ppd. Would like to quit and will try weaning off cigarettes. Allergies: No Known Allergies Medications: Current Outpatient Prescriptions Medication Sig Dispense Refill triamcinolone (KENALOG) 0.1% lotion Apply small amount to affected area(s) two to four times daily as needed: avoid face and groin areas 60 mL 0 No current facility-administered medications for this visit. Patient Active Problem List Diagnosis Gastroesophageal reflux disease History reviewed. No pertinent surgical history. Review of Systems Constitutional: Positive for appetite change, chills, diaphoresis, fatigue and unexpected w eight change. Negative for fever. HENT: Positive for trouble swallowing. Negative for congestion, ear discharge, ear pain, fa cial swelling, hearing loss, postnasal drip, rhinorrhea, sinus pain, sinus pressure and sore throat. Eyes: Negative. Respiratory: Negative. Negative for apnea, cough, choking, shortness of breath and wheezin g. Smoker Cardiovascular: Positive for palpitations. Negative for leg swelling. Gastrointestinal: Positive for abdominal distention, abdominal pain, constipation, diarrhea and nausea. Negative for blood in stool and vomiting. Endocrine: Positive for cold intolerance, heat intolerance and polydipsia. Negative for trinidad yphagia and polyuria. Genitourinary: Negative. Negative for dysuria and hematuria. Musculoskeletal: Positive for myalgias. Negative for arthralgias, back pain, gait problem, joint swelling, neck pain and neck stiffness. Shoulder and knee pain. Skin: Positive for rash. Rash on great toe Allergic/Immunologic: Negative for environmental allergies and food allergies. Neurological: Positive for dizziness, syncope, light-headedness and headaches. Negative for seizures. Has fainted twice in the past year - last time during new years after gorging on sweet s. Hematological: Positive for adenopathy. Does not bruise/bleed easily. Psychiatric/Behavioral: Negative. 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 He appears well-developed and we ll-nourished. HENT: Head: Normocephalic and atraumatic. Right Ear: External ear normal. Left Ear: External ear normal. Mouth/Throat: Oropharynx is clear and moist. Eyes: Conjunctivae and EOM are normal. Pupils are equal, round, and reactive to light. Neck: Normal range of motion. Neck supple. Cardiovascular: Normal rate, regular rhythm, normal heart sounds and intact distal pulses. Pulmonary/Chest: Effort normal and breath sounds normal. Abdominal: Soft. Bowel sounds are normal. Musculoskeletal: Normal range of motion. Neurological: He is alert and oriented to person, place, and time. He has normal reflexes. Skin: Skin is warm and dry. 2nd toe and great toe nail are thickened and yellow. Maculopapular rash on the medial sides of both great toes. Psychiatric: He has a normal mood and affect. His behavior is normal. Mihaela Cordero, [facility]59[facility] this encounter Plan of Treatment + +--------+ + + | Name | Priori | Associated Diagnoses | Order Schedule | | | ty | | | + +--------+ + + | Podiatry, External - AMB Referral | Routin | Onychomycosis | Ordered: 11/14/2017 | | | e | | | + +--------+ + + as of this encounter Results Thyroid (11/17/2017 1605) + + + | [...] + + | Robin, Rad Results In 11/17/2017 1626 PDT EXAMINATION:US THYROIDHISTORY:family | | [...] | | | + +---------+ + + Comprehensive Metabolic Panel (11/15/2017704) + [...] | 3.3 - 4.9 mmol/L | [facility] | | [facility] | | [facility] | | | | | LAB | + + + + + | CL | 106 | 95 - 108 mmol/L | [facility] | | [facility] | [facility] | | | | | LAB | + + + + + | CO2 | 33 | 23 - 34 mmol/L | [facility] | | [facility] | | [facility] | | | | | LAB | + + + + + | ANION GAP | 4 (L) | 7 - 16 mmol/L | [facility] | | | | [...] >60Comment: GLOMERULAR | >=60 mL/min/1.73m2 | [facility] | | [facility] | FILTRATION | | [facility]OSPITAL | | | RATE,ESTIMATED mL/min | | REGIONAL | | | /1.29f9Rlmm than 60 | | MEDICAL CENTER | [...] | 6.6 - 8.5 g/dL | [facility] | | | | | [facility] | | | | | [facility] | | | | | LAB | + + + + + | AST | 19 | 0 - 38 U/L | [facility] | | | | | [facility] | | | | | [facility] | | | | | LAB | + + + + + | ALT | 36 | 16 - 63 U/L | [facility] | | | | [...] + + | [facility] | [address] | [place] [address] | [phone] | | [facility] | | | | | MEDICAL CENTER LAB | | | | + + + + + CBC no Differential (11/15/2017 0705) + + + + + | Component | Value | Ref Range | Performed At | + + + + + | WBC | 6.5 | 4.6 - 10.5 K/uL | [facility] | | | | | [facility] | [...] | 39.0 - 51.9 % | [facility] | | | | [...] | 0.0 - 17.0 % | [facility] | | | | [...] [facility] | [address] | [place] [address] | [phone] | | [facility] | | | | | MEDICAL [facility] LAB | | | | + + + + + Hepatitis C, NAAT, Quant, Reflex (11/15/2017704) + + + + + | Component | Value | Ref Range | Performed At | + + + + + | Hepatitis C Ab | NONREACTIVE | | REFERENCE LAB | | | | | [facility] | | | | | [facility] - | | | | | [place] | | | | | [place] | [...] Medical | | | | | Director [id number] | | | | | [place] | | | | | [facility] | | | | | [place] | | | | | [address] CLIA | | | | | #[id number] | | | + + + + [...] | | | [place] | | | [place] | + + + + + + + + | Performing | Address | City/State/Zipcode | Phone Number | | Organization | | | | + + + + + | REFERENCE LAB | [address] | [place], [place] | | | [facility] - | | [address] | | | [place] | | [...] INFECTIOUS | | | | | DISEASE Phli Banda | | | | | Matthew Anne, | | | | | Medical | | | | | Director [phone] | | | | | [place] | | | | | [facility] | | | | | [place] | | | | | [address] [place] | | | | | #[id number] | | | + + + + + + + | Specimen | + + | Blood | + + + + + | Narrative | Performed At | + + + | Performing Organization Information: Site ID: HIV-1 RNA, | REFERENCE LAB | | QUANTITATIVE REAL-TIME PCR Name: Address: , | [facility] | | Director: | [facility] - | | | [place] | | | [place] | + + + + + + + + | Performing | Address | City/State/Zipcode | Phone Number | | Organization | | | | + + + + + | REFERENCE LAB | [address] | [place], [place] | | | [facility] - | | [address] | | | [place] | | | | + + + + + TSH, Reflex Free T4 (11/15/2017704) + +-------+ + + | Component | Value | Ref Range | Performed At | + +-------+ + + | TSH | 0.92 | 0.36 - 3.74 uIU/mL | [facility] | [facility] | | [facility] | | | | | REG[facility]AL | | | | | [facility] | | | | | LAB | + +-------+ + + + + | Specimen | + + | Blood | + + + + + + + | Performing | Address | City/State/Zipcode | Phone Number | | Organization | | | | + + + + + | [facility] | [address] | [place] [address] | [phone] | | [facility] | | | | | [facility] | | | | + + + + + in this encounter Visit Diagnoses + + | Diagnosis | + + | Fatigue, unspecified type - Primary | + + | History of methamphetamine use | + + | Onychomycosis | + + | Dermatophytosis of nail | + + | Dysphagia, unspecified type | + + | Tinea pedis of both feet | + + | At risk for sexually transmitted disease due to unprotected sex | + +
--- OUTSIDE RECORDS SUMMARY | ~2018-02-12 | XMS | Encounter Summary ---
Demographics + + + | Address | [address] | | | [place] [address] | + + + | Home Phone | | + + + | Preferred Language | Unknown | + + + | Marital Status | Single | + + + | Confucianist Affiliation | Unknown | + + + | Race | Unknown | + + + | Ethnic Group | Unknown | + + + Author + + + | Author | [facility] | | | and [place] | + + + | Organization | [facility] | | | and [place] | + + + | Address | Unknown | + + + | Phone | Unavailable | + + + Support + + + + + | Name | Relationship | Address | Phone | + + + + + | Lidya Dodson | ECON | [address] | | | | | [place] [address] | | + + + + + Care Team Providers + +------+ + | Care Director Immunology Name | Role | Phone | + [...] + + | 11/17/ | Telephone | [facility] [facility] | CorderoJerriMihaela | Results | | 2018 | | [facility] | G, SALES ACCOUNT COORDINATOR [address] | | | | | MEDICAL CLINIC [address] | [place], [place] | | | | | [address] [place], | [address] | | | | | [place] [address] | [phone] | | | | | [phone] | | | +--------+ + + + [...]
--- OUTSIDE RECORDS SUMMARY | ~2018-02-12 | XMS | Encounter Summary ---
Demographics + + + | Address | [address] | | | [place] [address] | + + + | Home Phone | | + + + | Preferred Language | Unknown | + + + | Marital Status | Single | + + + | Denominational Affiliation | Unknown | + + + | Race | Unknown | + + + | Ethnic Group | Unknown | + + + Author + + + | Author | [facility] | | | and [place] | + + + | Organization | [facility] | | | and [place] | + + + | Address | Unknown | + + + | Phone | Unavailable | + + + Support + + + + + | Name | Relationship | Address | Phone | + + + + + | Lidya Dodson | ECON | [address] | | | | | [place] [address] | | + + + + + Care Team Providers + +------+ + | Care Track Repair Person Name | Role | Phone | + [...] Results | | 2018 | | [facility] | G, SENIOR TRAINING SPECIALIST [address] | | | | | MEDICAL CLINIC [address] | [place], [place] | | | | | [address] [place], | [address] | | | | | [place] [address] | [phone] | | | | | [phone] | | | +--------+ + + + [...]
--- OUTSIDE RECORDS SUMMARY | ~2018-02-12 | XMS | Encounter Summary ---
Demographics + + + | Address | [address] | | | [place] [address] | + + + | Home Phone | | + + + | Preferred Language | Unknown | + + + | Marital Status | Single | + + + | Confucianism Affiliation | Unknown | + + + | Race | Unknown | + + + | Ethnic Group | Unknown | + + + Author + + + | Author | [facility] | | | and [place] | + + + | Organization | [facility] | | | and [place] | + + + | Address | Unknown | + + + | Phone | Unavailable | + + + Support + + + + + | Name | Relationship | Address | Phone | + + + + + | Lidya Dodson | ECON | [address] | | | | | [place] [address] | | + + + + + Care Team Providers + +------+ + | Care Paper Conservator Name | Role | Phone | + +------+ + | Mihaela Cordero PCP | | + +------+ + Encounter Details +--------+ + + + + | Date | Type | Department | Care Team | Description | +--------+ + + + + | 12/05/ | [facility] | Mihaela Cordero | | | 2018 | Encounter | [facility] | [place] [address] | | | | | MEDICINE [address] | [place] | | | | | [address] [place], [place] | [address] | | | | | [address] | [phone] | | | | | [phone] | | | +--------+ + + + [...]
--- OUTSIDE RECORDS SUMMARY | ~2018-02-12 | XMS | Encounter Summary ---
Demographics + + + | Address | [address] | | | [place] [address] | + + + | Home Phone | | + + + | Preferred Language | Unknown | + + + | Marital Status | Single | + + + | Religion Affiliation | Unknown | + + + | Race | Unknown | + + + | Ethnic Group | Unknown | + + + Author + + + | Author | [facility] | | | and [place] | + + + | Organization | [facility] | | | and [place] | + + + | Address | Unknown | + + + | Phone | Unavailable | + + + Support + + + + + | Name | Relationship | Address | Phone | + + + + + | Lidya Dodson | ECON | [address] | | | | | [place] [address] | | + + + + + Care Team Providers + +------+ + | Care Wic Site Coordinator Name | Role | Phone | + [...] | | | | | nodule | RESTAURANT HOSPITALITY MANAGER [address] | Medicine [address] | | | | | Procedures | [address] | [address] | | | | | NM THYROID | [place] | [place] | | | | | [place] | [address] | [address] | | | | | SCAN | Phone: | Phone: | | | | | | [phone] | [phone] | | | | | | Fax: | Fax: | | | | | | [phone] | [phone] | +--------+--------+ + + + + Diagnostic/Screening [...] | | | | | nodule | RESTAURANT HOSPITALITY MANAGER [address] | Medicine [address] | | | | | Procedures | [address] | [address] | | | | | NM THYROID | [place] | [place] | | | | | [place] | [address] | [address] | | | | | SCAN | Phone: | Phone: | | | | | | [phone] | [phone] | | | | | | Fax: | Fax: | | | | | | [phone] | [phone] | +--------+--------+ + + + + Reason [...] | | | | | nodule | [facility]ANT HOSPITAL[facility] MANAGER [address] | Medicine [address] | | | | | Procedures | [address] | [address] | | | | | NM THYROID | [place] | [place] | | | | | [place] | [address] | [address] | | | | | SCAN | Phone: | Phone: | | | | | | [phone] | [phone] | | | | | | Fax: | Fax: | | | | | | [phone] | [phone] | +--------+--------+ + + + + Encounter Details +--------+ + + + + | Date | Type | Department | Care Team | Description | +--------+ + + + + | 12/04/ | [facility] | [place] [facility] | Mihaela Cordero | Thyroid nodule | | 2018 | Encounter | [facility] | G, RESTAURANT HOSPITALITY MANAGER [address] | | | | | MEDICINE [address] | [place] | | | | | [place] | [address] | | | | | [address] | [phone] | | | | | [phone] | | | +--------+ + + + [...]
--- OUTSIDE RECORDS SUMMARY | ~2018-02-12 | XMS | Encounter Summary ---
Demographics + + + | Address | [address] | | | [place] [address] | + + + | Home Phone | | + + + | Preferred Language | Unknown | + + + | Marital Status | Single | + + + | Adventism Affiliation | Unknown | + + + | Race | Unknown | + + + | Ethnic Group | Unknown | + + + Author + + + | Author | [facility] | | | and [place] | + + + | Organization | [facility] | | | and [...] | | | | | [place] [address] | | + + + + + Care Team Providers + +------+ + | Care Global Supply Chain Director Name | Role | Phone | + [...] | | Required | | Onychomycosi | SAFETY AND OCCUPATIONAL HEALTH MANAGER [address] | [place] | | | | | s | [address] | [address] | | | | | | [place], [place] | [place] | | | | | | [address] | [place], [place] | | | | | | Phone: | [phone] Phone: | | | | | | [phone] | [phone] | | | | | | Fax: | Fax: | | | | | | [phone] | [phone] | + + + + + + [...] unspecified | | 2018 | Visit | [facility] | G, SAFETY AND OCCUPATIONAL HEALTH MANAGER [address] | type (Primary Dx); | | | | MEDICAL CLINIC [address] | [place], [place] | History of | | | | [address] [place], | [address] | methamphetamine use; | | | | [place] [address] | [phone] | Onychomycosis; | | | | [phone] | | Dysphagia, | | | | [...] to establish care. Was seen in the [facility] for a tick bite 10/23/17 and given [...] affect. His behavior is normal. Mihaela Cordero, [facility]/14/201711:59in this encounter Plan of Treatment + +--------+ [...] >=60 mL/min/1.73m2 | [facility] | | [facility] | FILTRATION | | HOSPITAL | | | RATE,ESTIMATED mL/min | | REGIONAL | | | /1.41d9Fqil than 60 | | MEDICAL CENTER | [...] + + | [facility] | [address] | [place] [address] | [phone] | | [facility] | | | | | [...] [address] | [place] [address] | [phone] | | HOSPITAL REGIONAL | | | [...] Medical | | | | | Director [id number] | | | | | [place] | | | | | [facility] | | | | | [place] | | | | | [address] CLIA | | | | | #[id number] | | | + + + + [...] + + + | REFERENCE LAB | [address] | [place], [place] | | | [facility] - | | [address] | | | [place] | | [...] Medical | | | | | Director [id number] | | | | | [place] | | | | | [facility] | | | | | [place] | | | | | [address] [place] | | | | | #[id number] | | | + + + + [...] + + + | REFERENCE LAB | [address] | [place], [place] | | | [facility] - | | [address] | | | [place] | | [...] | REGIONAL | | | | | [facility] | | | | | LAB | + +-------+ + + + + | Specimen | + + | Blood | + + + + + + + | Performing | Address | City/State/Zipcode | Phone Number | | Organization | | | | + + + + + | [facility] | [address] | [place] [address] | [phone] | | [facility] | | | | | [facility] | | | | + [...]
--- OUTSIDE RECORDS SUMMARY | ~2018-02-12 | XMS | Encounter Summary ---
Demographics + + + | Address | [address] | | | [place] [address] | + + + | Home Phone | | + + + | Preferred Language | Unknown | + + + | Marital Status | Single | + + + | Mandaen Affiliation | Unknown | + + + | Race | Unknown | + + + | Ethnic Group | Unknown | + + + Author + + + | Author | [facility] | | | and [place] | + + + | Organization | [facility] | | | and [place] | + + + | Address | Unknown | + + + | Phone | Unavailable | + + + Support + + + + + | Name | Relationship | Address | Phone | + + + + + | Lidya Dodson | ECON | [address] | | | | | [place] [address] | | + + + + + Care Team Providers + +------+ + | Care Account Director Name | Role | Phone | + +------+ + | Mihaela oCrdero | PCP | | + +------+ + [...] | Results | | 2018 | | [facility] | G, RN CIRCULATING [address] | | | | | MED[facility] [address] | [place], [place] | | | | | [address] [place], | [address] | | | | | [place] [address] | [phone] | | | | | [phone] | | | +--------+ + + + [...]
--- OUTSIDE RECORDS SUMMARY | ~2018-02-12 | XMS | Encounter Summary ---
Demographics + + + | Address | [address] | | | [place] [address] | + + + | Home Phone | | + + + | Preferred Language | Unknown | + + + | Marital Status | Single | + + + | Judaism Affiliation | Unknown | + + + | Race | Unknown | + + + | Ethnic Group | Unknown | + + + Author + + + | Author | [facility] | | | and [place] | + + + | Organization | [facility] | | | and [...] | | | | | [place] [address] | | + + + + + Care Team Providers + +------+ + | Care Spring Maker Name | Role | Phone | + [...] | | | [address] [place], [place] | [address] | | | | | [address] | [phone] | | | | | [phone] | | | +--------+ + + + [...]
--- OUTSIDE RECORDS SUMMARY | ~2018-02-12 | XMS | Encounter Summary ---
Demographics + + + | Address | [address] | | | [place] [address] | + + + | Home Phone | | + + + | Preferred Language | Unknown | + + + | Marital Status | Single | + + + | Christian Affiliation | Unknown | + + + | Race | Unknown | + + + | Ethnic Group | Unknown | + + + Author + + + | Author | [facility] | | | and [place] | + + + | Organization | [facility] | | | and [place] | + + + | Address | Unknown | + + + | Phone | Unavailable | + + + Support + + + + + | Name | Relationship | Address | Phone | + + + + + | Lidya Dodson | ECON | [address] | | | | | [place] [address] | | + + + + + Care Team Providers + +------+ + | Care Munitions Handler Supervisor Name | Role | Phone | + [...] | Results | | 2018 | | [facility] | G, BOX TURNER [address] | | | | | MEDICAL CLIN[facility] [address] | [place], [place] | | | | | [address] [place], | [address] | | | | | [place] [address] | [phone] | | | | | [phone] | | | +--------+ + + + [...]
--- OUTSIDE RECORDS SUMMARY | ~2018-02-12 | XMS | Encounter Summary ---
Demographics + + + | Address | [address] | | | [place] [address] | + + + | Home Phone | | + + + | Preferred Language | Unknown | + + + | Marital Status | Single | + + + | Anglican Affiliation | Unknown | + + + | Race | Unknown | + + + | Ethnic Group | Unknown | + + + Author + + + | Author | [facility] | | | and [place] | + + + | Organization | and [facility] | | | and [place] | + + + | Address | Unknown | + + + | Phone | Unavailable | + + + Support + + + + + | Name | Relationship | Address | Phone | + + + + + | Lidya Dodson | ECON | [address] | | | | | [place] [address] | | + + + + + Care Team Providers + +------+ + | Care Sports Physiotherapist Name | Role | Phone | + [...] | Results | | 2018 | | [facility] | G, 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
--- OUTSIDE RECORDS SUMMARY | ~2018-02-12 | XMS | Encounter Summary ---
Demographics + + + | Address | [address] | | | [place] [address] | + + + | Home Phone [...] + + | Author | [facility] | | | and [place] | + + + | Organization | [facility] | | | and [...] | | | | | [place] [address] | | + + + + + Care Team Providers + +------+ + | Care Director Airport Name | Role | Phone | + +------+ + | Mihaela Cordero | PCP | | + +------+ + Encounter Details +--------+ + + + + | Date | Type | Department | Care Team | Description | +--------+ + + + + | 12/05/ | Orders Only | [place] [facility] | Jerri Corderosay | Multiple thyroid | | 2018 | | [facility] | G, SOIL ANALYST [address] | nodules (Primary Dx) | | | | MEDICAL [facility] [address] | [place], [place] | | | | | [address] [place], | [address] | | | | | [place] [address] | [phone] | | | | | [phone] | | | +--------+ + + + [...] as of this encounter Plan of Treatment + +--------+ + + | Name | Priori | Associated Diagnoses | Order Schedule | | | ty | | | + +--------+ + + | US Thyroid | Routin | Multiple thyroid | Expected: | | | e | nodules | 03/07/2018, Expires: | | | | | 12/05/2018 | + +--------+ + + as of this encounter Visit Diagnoses + + | Diagnosis | + + | Multiple thyroid nodules - Primary | + + | Nontoxic multinodular goiter | + +"
--- OUTSIDE RECORDS SUMMARY | ~2018-02-12 | XMS | Encounter Summary ---
Demographics + + + | Address | [address] | | | [place] [address] | + + + | Home Phone | | + + + | Preferred Language | Unknown | + + + | Marital Status | Single | + + + | Temple Affiliation | Unknown | + + + | Race | Unknown | + + + | Ethnic Group | Unknown | + + + Author + + + | Author | [facility] | | | and [place] | + + + | Organization | [facility] | | | and [place] | + + + | Address | Unknown | + + + | Phone | Unavailable | + + + Support + + + + + | Name | Relationship | Address | Phone | + + + + + | Lidya Dodson | ECON | [address] | | | | | [place] [address] | | + + + + + Care Team Providers + +------+ + | Care Switchbox Assembler Name | Role | Phone | + [...] 2018 | | [facility] | G, SQL ANALYST [address] | nodules (Primary Dx) | | | | MED[facility] [address] | [place], [place] | | | | | [address] [place], | [address] | | | | | [place] [address] | [phone] | | | | | [phone] | | | +--------+ + + + [...]
--- OUTSIDE RECORDS SUMMARY | ~2018-02-12 | XMS | Encounter Summary ---
Demographics + + + | Address | [address] | | | [place] [address] | + + + | Home Phone | | + + + | Preferred Language | Unknown | + + + | Marital Status | Single | + + + | Yazidi Affiliation | Unknown | + + + | Race | Unknown | + + + | Ethnic Group | Unknown | + + + Author + + + | Author | [facility] | | | and [place] | + + + | Organization | [facility] | | | and [place] | + + + | Address | Unknown | + + + | Phone | Unavailable | + + + Support + + + + + | Name | Relationship | Address | Phone | + + + + + | Lidya Dodson | ECON | [address] | | | | | [place] [address] | | + + + + + Care Team Providers + +------+ + | Care Multineedle Shirrer Name | Role | Phone | + +------+ + | Mihaela Cordero | PCP | | + +------+ + Encounter Details +--------+ + + + + | Date | Type | Department | Care Team | Description | +--------+ + + + + | 11/17/ | [facility] | Mihaela Cordero | Dysphagia, | | 2018 | Encounter | [facility] | G, MID[employer] 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
--- OUTSIDE RECORDS SUMMARY | ~2018-02-12 | XMS | Encounter Summary ---
Demographics + + + | Address | [address] | | | [place] [address] | + + + | Home Phone | | + + + | Preferred Language | Unknown | + + + | Marital Status | Single | + + + | Mormonism Affiliation | Unknown | + + + | Race | Unknown | + + + | Ethnic Group | Unknown | + + + Author + + + | Author | [facility] | | | and [place] | + + + | Organization | [facility] | | | [...] [address] | | | | | [place] [address] | | + + + + + Care Team Providers + +------+ + | Care Materials Manager Name | Role | Phone | [...] | Results | | 2018 | | [facility] | G, 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
[2018-02-12] MEDS ORDERED: MIRALAX17 GM PO (15:06)
[2018-02-12] MEDS ORDERED: ANUSOL-HC25 MG PR (15:06)
== END 2018-02-12 15:12 | disposition home or self-care (01) ==
LOC: ED 14:48
DX: K64.4 Residual hemorrhoidal skin tags (principal)
CPT/HCPCS: 99282

== ENCOUNTER 2019-07-22 13:06 | Emergency (ER) | payer SELFPAY ==
[~2019-07-22] VITALS: Ht 180.3 cm; Wt 65.8 kg
[~2019-07-22 13:06] MED LIST: ANUSOL-HC25 MG PR; MIRALAX17 GM PO
== END 2019-07-22 15:26 | disposition home or self-care (01) ==
LOC: ED 13:06
DX: S29.011A Strain of muscle and tendon of front wall of thorax, initial encounter (principal); W22.8XXA Striking against or struck by other objects, initial encounter; F17.200 Nicotine dependence, unspecified, uncomplicated
CPT/HCPCS: 99284